=== PATIENT | female | born 1975 | race Two or more races ===

== ENCOUNTER → 2025-03-08 | Day surgery (SDC) | payer MEDICAID ==
[2025-03-02 15:13] LABS: Hematocrit 36.8 % (36.0-46.0); Hemoglobin 12.0 g/dL (12.2-16.2); Mean Corpuscular Hemoglobin 26.2 pg (28.0-32.0); Mean Corpuscular Volume 80.4 fL (80.0-100.0); Nucleated Red Blood Cells % 0.0 %
[2025-03-02 15:30] LABS: INR 1.01 (0.9-1.15); Partial Thromboplastin Time 27.0 SEC (24.5-34.5); Prothrombin Time 10.7 sec (9.3-11.8)
[2025-03-02 15:31] LABS: Urine Protein, UAD TRACE (Negative)
[2025-03-02 15:36] LABS: Alanine Aminotransferase 29 U/L (7-40); Albumin 4.7 g/dL (3.2-4.8); Alkaline Phosphatase 102 U/L (46-116); Anion Gap 9 (5-15); BUN/Creatinine Ratio 13.9 (10.0-20.0); Blood Urea Nitrogen 11 mg/dL (9-23); Calcium 9.6 mg/dL (8.7-10.4); Carbon Dioxide 24 mmol/L (20-31); Sodium 140 mmol/L (136-145); Total Protein 7.2 g/dL (5.7-8.2)
[2025-03-02 15:37] LABS: Bilirubin, Total 0.3 mg/dL (0.2-1.0); Chloride 107 mmol/L (98-107); Glucose 134 mg/dL (74-106); Potassium 3.4 mmol/L (3.5-5.1)
[~2025-03-08] VITALS: Ht 154.9 cm; Wt 90.7 kg
[~2025-03-08] MED LIST: AMIT10TA12 PO; DOCU-94 PO; FERR-7 PO; LIDOCAINE VISCOUS 2% 15ML UD ONE; METF-489 PO; MIDAZOLAM HCL 2MG/2ML 2ml VIAL (1mg/ml) ONE; PROP60CA34 PO; PROPOFOL 10 MG/ML 20 ML IV ONE; SPIR25TA8 PO; SUMA50TA2 PO; fentaNYL CITRATE 100 MCG/2 ML VL ONE
--- NOTE | 2025-03-08 10:12 | DVHHP2 ---
GI H&P Pre-Op Assessment Date: 03/08/25 Chief complaint: Anemia and positive fit test HPI: per clinic note Past medical history: per clinic note Past surgical history: per clinic note Family history: per clinic note Physical exam: General: NAD, AAOX3 HEENT: PERRL, no scleral icterus, normal hearing, gums without lesions or bleeding, oropharynx clear without erythema or exudate. Neck: Supple without enlargement of the thyroid, or lymphadenopathy. Chest: Normal size and shape, no tenderness, lung perdomo clear to auscultation and percussion, nonlabored breathing. Heart: RRR, no murmur Abdomen: non-distended, no tenderness to palpation, +BS, no hepatosplenomegaly Extremities: no edema Neurological: CN II-XII intact, sensation intact in all extremities, 5+ strength in all extremities Skin: No rashes, No jaundice Assessment: - Anemia and positive fit test Plan: - EGD - Colonoscopy - Risks (bleeding, infection, perforation, reaction to sedation medications and cardiopulmonary arrest) and benefit of the procedure were explained to patient. Patient agrees to undergo the procedure. MARGOT GARRETT MD Mar 08, 2025 10:12
--- NOTE | 2025-03-08 10:38 | DVHOP2 ---
Operative Report DATE OF OPERATION: 03/08/25 PROCEDURE: Upper Endoscopy. PREOPERATIVE INDICATION: The patient is a 49 -year-old female undergoing endoscopy for anemia. POSTOPERATIVE DIAGNOSES: 1. Mild gastritis. PROCEDURE PERFORMED BY: Shalom Galarza SCOPE: Olympus videoendoscope. ASA CLASS: 3 PREOPERATIVE MEDICATIONS: MAC with Dr zhang PROCEDURE IN DETAIL: After obtaining an informed consent, the patient was placed on left lateral decubitus position. The patient was then sedated with the above medications. A bite block was placed between her teeth. The endoscope was then passed through the oropharynx, into the esophagus, and through the stomach and pylorus up to the second and third part of the duodenum. The duodenum was normal in appearance. There was mild gastritis. Gastric biopsies were obtained using cold forceps. The GE junction was normal in appearance at 35 cm. The esophagus was normal in appearance. The endoscope was then withdrawn. The patient tolerated the procedure well without difficulty. COMPLICATIONS : None SPECIMENS: Gastric biopsies DISPOSITION: D/C to home PLAN: 1. Await for biopsy result 2. Will place pt on Protonix 40 mg daily SHALOM GALARZA MD Mar 08, 2025 10:38
--- NOTE | 2025-03-08 10:39 | DVHOP2 ---
Operative Report DATE OF OPERATION: 03/08/25 PROCEDURE: Colonoscopy. PREOPERATIVE INDICATION: The patient is a 49 -year-old female undergoing colonoscopy for anemia and positive fit test. POSTOPERATIVE DIAGNOSES: 1. Few small diverticulosis in the left colon. PROCEDURE PERFORMED BY: Shalom Galarza M.D. SCOPE: Olympus videocolonoscope. ASA CLASS: 3 PREOPERATIVE MEDICATIONS: MAC with Dr Vinson PROCEDURE IN DETAIL: After obtaining an informed consent, the patient was placed on left lateral decubitus position. She was then sedated with the above medications. A rectal examination was performed that was normal. The colonoscope was then passed through the anus into the rectosigmoid and through the descending, transverse, and ascending colon up to the cecum with visualization of the appendiceal orifice, base of the cecum and the ileocecal va lve. No mass or polyp was observed. There was a few small diverticulosis in the left colon. The colonoscope was then withdrawn. The patient tolerated the procedure well without difficulty. WITHDRAWAL TIME: 6 minutes QUALITY OF THE PREP: Wallace Bowel Prep score: 7 COMPLICATIONS : None SPECIMENS: None DISPOSITION: D/C to home PLAN: 1. Patient will follow up in GI clinic. SHALOM GALARZA MD Mar 08, 2025 10:39
--- NOTE | 2025-03-08 10:40 | DVHDS2 ---
Physician Discharge Progress N Final Diagnosis: Mild gastritis Diverticulosis Operations or Procedures: Operations or Procedures EGD with cold biopsy Colonoscopy Condition on Discharge: Good Disposition: Home Discharge Instructions: Diet: Regular Activity: No Restrictions, As Tolerated Medications: Resume with previous home medications Follow Up Care: Discharge Statement: "Patient was advised to return to the ER or call 911 if any headaches, dizziness, shortness of breath, chest pain, abdominal pain, bleeding, fevers, or worsening of medical condition. Patient was counseled about treatment plan, medications, possible side effects, patientverbalized understanding. All questions were answered to the best of my ability. This discharge took greater then 30 minutes in planning, reviewing documentation, counseling the patient, and discussing with other team members." MARGOT GARRETT MD Mar 08, 2025 10:40
[2025-03-08 10:45] VITALS: PULSE 59; RESP 17; O2SAT 100
[2025-03-08 11:10] VITALS: BP 131/80; PULSE 65; RESP 17; O2SAT 96
== END | disposition home or self-care (01) ==
LOC: GI 07:58
PROVIDERS: ATTEND Internal Medicine Gastroenterology
DX: R19.5 Other fecal abnormalities (principal); K57.30 Diverticulosis of large intestine without perforation or abscess without bleeding; K29.50 Unspecified chronic gastritis without bleeding; B96.81 Helicobacter pylori [H. pylori] as the cause of diseases classified elsewhere; R19.7 Diarrhea, unspecified; D64.9 Anemia, unspecified; E11.9 Type 2 diabetes mellitus without complications; Z79.84 Long term (current) use of oral hypoglycemic drugs; Z79.899 Other long term (current) drug therapy; Z98.890 Other specified postprocedural states
CPT/HCPCS: 36415; 43239; 45378; 80053; 81001; 82962; 84702; 85025; 85610; 85730; 88305; 88342; J1100; J2250; J2704; J3010; J7030

== ENCOUNTER 2025-04-25 19:37 | Emergency (ER) | payer MEDICAID, OTHER ==
[~2025-04-25] VITALS: Ht 157.5 cm; Wt 92.3 kg
[~2025-04-25 19:37] MED LIST changes: -LIDOCAINE VISCOUS 2% 15ML UD ONE; -MIDAZOLAM HCL 2MG/2ML 2ml VIAL (1mg/ml) ONE; -PROPOFOL 10 MG/ML 20 ML IV ONE; -fentaNYL CITRATE 100 MCG/2 ML VL ONE
--- NOTE | 2025-04-25 21:48 | DVH ---
CLINICAL HISTORY: left shoulder pain TECHNIQUE: 3 views of the right shoulder were obtained. COMPARISON: None FINDINGS: No acute fracture or dislocation is seen. No soft tissue abnormality is evident. There are no signifi cant degenerative changes. IMPRESSION: NO ACUTE RADIOGRAPHIC ABNORMALITY OF THE RIGHT SHOULDER.
--- NOTE | 2025-04-25 21:58 | DVH ---
EXAM: CT CERVICAL WITHOUT CONTRAST INDICATION: neck pain EXAM DATE: 04/25/2025 09:13 PM COMPARISON: None TECHNIQUE: Multiple axial CT images of the cervical spine were obtained using bone algorithm. Axial a nd coronal reformatting was done. Bone and soft tissue windows were reviewed. Radiation Dose Information: CT Dose: CTDI volume is 22.94 mGy. Dose-length product is 556.75 mGy*cm FINDINGS: Straightening of the cervical lordosis. No acute cervical spine fracture is identified. The vertebral body heights are intact. No suspicious osseous lesions are identified. No significant degenerative changes are identified. There is no prevertebral soft tissue swelling. Upon mucoperiosteal thickening of right inferior maxil daniela sinus. IMPRESSION: No evidence of acute cervical spine fracture or traumatic malalignment. All CT scans at this medical facility are performed using dose modulation techniques as appropriate t o a performed exam including the following: Automated exposure control was utilized; adjustment of th e MA and/or KV according to patient size; and use of iterative reconstruction technique.
[2025-04-25] MEDS ORDERED: CYCL-837 PO (23:51)
[2025-04-25] MEDS ORDERED: ACET500T58 PO (23:51)
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
[2025-04-26] MEDS: KETOROLAC TROMETH 60MG/2ML VIAL IM ONE (00:06)
[2025-04-26 00:09] VITALS: BP 151/57; PULSE 55; RESP 18; TEMP 97.9; O2SAT 98
== END 2025-04-26 00:13 | disposition home or self-care (01) ==
LOC: ER 19:37
DX: S16.1XXA Strain of muscle, fascia and tendon at neck level, initial encounter (principal); S46.911A Strain of unspecified muscle, fascia and tendon at shoulder and upper arm level, right arm, initial encounter; I10 Essential (primary) hypertension; Z79.899 Other long term (current) drug therapy; V89.2XXA Person injured in unspecified motor-vehicle accident, traffic, initial encounter; Y93.89 Activity, other specified; Y92.410 Unspecified street and highway as the place of occurrence of the external cause; Y99.8 Other external cause status
CPT/HCPCS: 72125; 73030; 96372; 99285; J1885